=== PATIENT | female | born 1980 | race African-American/Black ===

== ENCOUNTER 2020-01-26 14:55 | Emergency (ER) | payer MEDICAID ==
[~2020-01-26] VITALS: Ht 172.7 cm; Wt 107.5 kg
[2020-01-26 15:39] LABS: Basophils # (auto) 0.1 10 ^3/uL (0-0.2); Basophils % (auto) 1.3 % (0.0-2.0); Eosinophils # (auto) 0.2 10 ^3/uL (0-0.8); Hematocrit 44.2 % (36.0-46.0); Hemoglobin 14.8 g/dL (12.2-16.2); Lymphocytes # (auto) 1.4 10 ^3/uL (0.4-5.4); Lymphocytes % (auto) 26.1 % (10.0-50.0); Mean Corpuscular Hemoglobin 29.2 pg (28.0-32.0); Mean Corpuscular Hgb Conc. 33.5 g/dL (32.0-36.0); Mean Corpuscular Volume 87.2 fL (80.0-100.0); Monocytes # (auto) 0.7 10 ^3/uL (0-1.3); Monocytes % (auto) 12.9 % (0.0-12.0); Neutrophils % (auto) 55.7 % (37.0-80.0); Nucleated Red Blood Cells % 0.1 %; Platelet Count (auto) 254 10^3/uL (140-450); Red Blood Cells 5.07 10^6/uL (4.0-5.20); Red Cell Distribution Width 14.3 % (11.8-14.3); White Blood Cell 5.5 10^3/uL (4.4-10.8)
[2020-01-26 15:56] LABS: INR 0.97 (0.9-1.15); Partial Thromboplastin Time 27.6 sec (23.0-31.2)
[2020-01-26 15:59] LABS: Alanine Aminotransferase 26 U/L (13-56); Albumin 3.9 g/dL (3.4-5.0); Alkaline Phosphatase 125 U/L (45-117); Anion Gap 5 (5-15); Aspartate Aminotransferase 20 U/L (15-37); BUN/Creatinine Ratio 5.6; Bilirubin, Total 0.6 mg/dL (0.2-1.0); Blood Urea Nitrogen 7 mg/dL (7-18); Carbon Dioxide 28 mmol/L (21-32); Chloride 103 mmol/L (98-107); GFR African American 61 mL/min; GFR Non-African American 51 mL/min; Glucose 97 mg/dL (74-106); Potassium 3.6 mmol/L (3.5-5.1); Sodium 136 mmol/L (136-145); Total Protein 8.1 g/dL (6.4-8.2)
[2020-01-26 17:11] LABS: Alcohol, Urine < 3.0 mg/dL (0-10); Amphetamine Screen, Urine NEGATIVE (NEGATIVE); Barbiturate Scree,Urine NEGATIVE (NEGATIVE); Benzodiazephine Screen, Urine NEGATIVE (NEGATIVE); Cannabinoid Screen, Urine POSITIVE (NEGATIVE); Cocaine Screen, Urine NEGATIVE (NEGATIVE); Opiate Scree,Urine NEGATIVE (NEGATIVE); Phencyclidine Screen, Urine NEGATIVE (NEGATIVE)
[2020-01-26 23:40] VITALS: BP 132/89
== END 2020-01-26 20:00 | disposition home or self-care (01) ==
LOC: ER 14:56
DX: R07.89 Other chest pain (principal); F41.9 Anxiety disorder, unspecified; F12.10 Cannabis abuse, uncomplicated; I10 Essential (primary) hypertension
CPT/HCPCS: 36415; 71046; 80053; 80307; 84484; 85025; 85610; 85730; 93005

== ENCOUNTER 2020-09-11 18:36 | Emergency (ER) | payer MEDICAID, OTHER ==
[~2020-09-11] VITALS: Ht 172.7 cm; Wt 99.8 kg
[2020-09-11 19:08] VITALS: BP 145/101
[2020-09-11] MEDS ORDERED: cloNIDine HCL 0.1 MG TAB PO ONE (19:15)
== END 2020-09-11 21:21 | disposition home or self-care (01) ==
LOC: ER 18:36
DX: S51.811A Laceration without foreign body of right forearm, initial encounter (principal); S61.432A Puncture wound without foreign body of left hand, initial encounter; I10 Essential (primary) hypertension; W26.8XXA Contact with other sharp object(s), not elsewhere classified, initial encounter; Y93.89 Activity, other specified; Y92.89 Other specified places as the place of occurrence of the external cause; Y99.8 Other external cause status
CPT/HCPCS: 93005